=== PATIENT | female | born 1995 | race Caucasian/White ===

== ENCOUNTER 2020-12-30 21:16 | Emergency (ER) | payer OTHER | END 2020-12-30 23:03 | disposition left against medical advice (07) | LOC: MED 21:16 | DX: O26.891 Other specified pregnancy related conditions, first trimester (principal); R10.9 Unspecified abdominal pain; Z3A.08 8 weeks gestation of pregnancy; Z53.21 Procedure and treatment not carried out due to patient leaving prior to being seen by health care provider ==

== ENCOUNTER 2021-10-23 20:07 | Emergency (ER) | payer OTHER ==
[~2021-10-23] VITALS: Ht 154.9 cm; Wt 104.3 kg
[2021-10-23 20:22] VITALS: BP 145/80
--- NOTE | 2021-10-23 20:22 | NUR ---
TO BED AMBULATORY
--- NOTE | 2021-10-23 20:50 | NUR ---
Dr. Mccracken examining patient.
[2021-10-23] MEDS ORDERED: diphenhydrAMINE 50 MG/ML VIAL IVP ONE (20:55)
[2021-10-23] MEDS ORDERED: FAMOTIDINE 20 MG/2 ML VIAL IVP ONE (20:55)
[2021-10-23] MEDS ORDERED: methylPREDNISolone SS 125 MG/2 ML VIAL IVP ONE (20:55)
[2021-10-23] MEDS ORDERED: EPINEPHrine 1 MG/ML AMP IM ONE (20:55)
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
[2021-10-23] MEDS ORDERED: ONDANSETRON 4 MG/2 ML VIAL IVP ONE (21:20)
[2021-10-23] MEDS ORDERED: PRED20TA5 PO (22:23)
[2021-10-23] MEDS ORDERED: ONDA-188 PO (22:23)
[2021-10-23] MEDS ORDERED: FAMO-90 PO (22:23)
[2021-10-23] MEDS ORDERED: EPIN1KIT31 IM (22:23)
[2021-10-23] MEDS ORDERED: DIPH25TA53 PO (22:23)
[2021-10-23 22:40] VITALS: BP 138/72
--- NOTE | 2021-10-23 22:41 | NUR ---
Patient discharged with v/s stable. Written and verbal after care instructions given and explained. Patient alert, oriented and verbalized understanding of instructions. Ambulatory with steady gait. All questions addressed prior to discharge. ID band removed. Patient advised to follow up with PMD. Rx of benadryl, epipen, pepcid, zofran, and deltasone given. Patient educated on indication of medication including possible reaction and side effects. Opportunity to ask questions provided and answered. vss, a/ox4, ambulatory, unlabored breathing, and calm demeanor.
== END 2021-10-23 22:41 | disposition home or self-care (01) ==
LOC: MED 20:07
DX: L50.0 Allergic urticaria (principal); E11.9 Type 2 diabetes mellitus without complications; Z79.899 Other long term (current) drug therapy
CPT/HCPCS: 96372; 96374; 96375; 99291; 99292; J0171; J1200; J2930; J3490; 99282

== ENCOUNTER 2022-08-06 08:03 | Emergency (ER) | payer OTHER ==
[~2022-08-06] VITALS: Ht 157.5 cm; Wt 104.3 kg
[~2022-08-06 08:03] MED LIST: DIPH25TA53 PO; EPIN1KIT31 IM; FAMO-90 PO; ONDA-188 PO; PRED20TA5 PO
[2022-08-06 08:22] VITALS: BP 100/55
--- NOTE | 2022-08-06 08:37 | NUR ---
UA SENT TO THE LAB
[2022-08-06] MEDS ORDERED: ONDANSETRON 4 MG ODT PO ONE (11:15)
[2022-08-06] MEDS ORDERED: KETOROLAC 60 MG/2 ML VIAL IM ONE (11:15)
[2022-08-06] MEDS ORDERED: ONDA8TAB87 PO (11:28)
[2022-08-06] MEDS ORDERED: LOPE-289 PO (11:28)
[2022-08-06] MEDS ORDERED: IBUP-2213 PO (11:28)
--- NOTE | 2022-08-06 12:08 | NUR ---
Patient discharged with v/s stable. Written and verbal after care instructions FOR N/V/D AND ABD PAIN given and explained. Patient alert, oriented and verbalized understanding of instructions. Ambulatory with steady gait. All questions addressed prior to discharge. ID band removed. Patient advised to follow up with PMD. Rx of IBUPROFEN,IMODIUM AND ZOFRAN given. Opportunity to ask questions provided and answered.
[2022-08-06 12:26] VITALS: BP 120/80
== END 2022-08-06 12:08 | disposition home or self-care (01) ==
LOC: MED 08:03
DX: R10.13 Epigastric pain (principal); R11.2 Nausea with vomiting, unspecified; R19.7 Diarrhea, unspecified; E11.9 Type 2 diabetes mellitus without complications; Z79.899 Other long term (current) drug therapy
CPT/HCPCS: 81025; 96372; 99283; J1885; Q0162